=== PATIENT | male | born 1960 | race Hispanic/Latino ===

== ENCOUNTER → 2020-01-05 | Outpatient (CLI) | payer OTHER ==
[2020-01-05 10:23] LABS: BASOPHILS % (AUTO) 0.5 % (0.0-5.0); EOSINOPHILS % (AUTO) 2.9 % (0.0-8.0); HEMATOCRIT 36.9 % (42-54); LYMPHOCYTES % (AUTO) 12.1 % (21.0-51.0); MEAN CORPUSCULAR HGB CONC 34.4 g/dL (32.0-36.0); MEAN CORPUSCULAR VOLUME 98.9 fL (79-99); NEUTROPHILS % (AUTO) 76.3 % (40.0-77.0); PLATELET COUNT (AUTO) 75 K/uL (130-400); RED BLOOD CELL COUNT(AUTO) 3.73 MIL/uL (4.50-6.20); RED CELL DISTRIBUTION WIDTH 13.2 % (11.0-15.5); WHITE BLOOD COUNT (AUTO) 4.1 K/uL (4.8-10.8)
[2020-01-05 10:33] LABS: BILIRUBIN,TOTAL 1.9 mg/dL (0.2-1.0); INR 1.04 (0.85-1.15); PARTIAL THROMBOPLASTIN TIME 24.5 SEC (26.3-35.5); POTASSIUM 4.5 mmol/L (3.5-5.1); PROTHROMBIN TIME 11.2 SEC (9.6-11.6); TOTAL PROTEIN, SERUM 7.4 g/dL (6.0-8.3)
== END | disposition home or self-care (01) ==
LOC: RAH 08:57
PROVIDERS: ATTEND Internal Medicine Gastroenterology
DX: K80.20 Calculus of gallbladder without cholecystitis without obstruction (principal); K70.30 Alcoholic cirrhosis of liver without ascites
CPT/HCPCS: 36415; 76700; 80053; 85025; 85610; 85730; 93975

== ENCOUNTER 2021-05-28 10:22 | Inpatient (IN) | payer OTHER ==
[~2021-05-28] VITALS: Ht 154.9 cm; Wt 65.8 kg
[~2021-05-28 10:22] MED LIST: ALLO300T2 PO; FLUT1AER IH; LACT10SO76 PO; LISI40TA9 PO
[2021-05-28] MEDS ORDERED: 0.9%NACL 1000ML 1,000 ML IV SCH (11:00)
[2021-05-28] MEDS ORDERED: 0.9%NACL 1000ML 1,000 ML IV ONE (11:02)
[2021-05-28 11:06] LABS: HEMATOCRIT 34.7 % (42-54); MEAN CORPUSCULAR HEMOGLOBIN 35.8 pg (27.0-33.0); MEAN CORPUSCULAR HGB CONC 36.6 g/dL (32.0-36.0); MEAN CORPUSCULAR VOLUME 97.7 fL (79-99); PLATELET COUNT (AUTO) 104 K/uL (130-400); RED BLOOD CELL COUNT(AUTO) 3.55 MIL/uL (4.50-6.20); RED CELL DISTRIBUTION WIDTH 14.9 % (11.0-15.5); WHITE BLOOD COUNT (AUTO) 8.7 K/uL (4.8-10.8)
[2021-05-28 11:15] LABS: CREATININE 2.6 mg/dL (0.5-1.5); POTASSIUM 4.7 mmol/L (3.5-5.1)
[2021-05-28 11:20] LABS: INR 1.06 (0.85-1.15); PROTHROMBIN TIME 11.5 SEC (9.6-11.6)
[2021-05-28 11:21] LABS: PARTIAL THROMBOPLASTIN TIME 25.3 SEC (26.3-35.5)
[2021-05-28 11:26] LABS: ALBUMIN 2.3 g/dL (3.5-5.0); TOTAL PROTEIN, SERUM 6.6 g/dL (6.0-8.3)
[2021-05-28 12:04] LABS: EOSINOPHILS % (MANUAL) 1 % (1-6); LYMPHOCYTES % (MANUAL) 8 % (22-44); MAN.DIFF COMMENT-IMPRESSION MANUAL DIFFERENTIAL; MONOCYTES % (MANUAL) 6 % (2-9); PLATELET MORPHOLOGY COMMENT SLIGHTLY DECREASED; SEGMENTED NEUTROPHILS % 85 % (40-70)
[2021-05-28 12:23] LABS: APPEARANCE,URINE Clear (CLEAR); BILIRUBIN,URINE Negative (NEGATIVE); COLOR,URINE Yellow (YELLOW); GLUCOSE, URINE (UA) Negative (NEGATIVE); KETONES,URINE Negative (NEGATIVE); LEUKOCYTE ESTERASE ,URINE Negative (NEGATIVE); NITRATE,URINE Negative (NEGATIVE); OCCULT BLOOD,URINE Negative (NEGATIVE); PH,URINE 5.5 (5.0-8.0); PROTEIN,URINE Negative (NEGATIVE); UROBILINOGEN,URINE 0.2 mg/dL (0.2-1.0)
[2021-05-28] MEDS ORDERED: PANTOPRAZOLE 40 MG/VIAL IVP ONE (13:00)
[2021-05-28] MEDS ORDERED: 0.9%NACL 50ML 50 ML IV ONE (13:26)
[2021-05-28 13:28] LABS: AMPHET/METH SCREEN,URINE NEGATIVE (NEGATIVE); BARBITURATE SCREEN, URINE NEGATIVE (NEGATIVE); BENZODIAZEPINES SCREEN,URINE NEGATIVE (NEGATIVE); CANNABINOID SCREEN,URINE NEGATIVE (NEGATIVE); COCAINE SCREEN,URINE NEGATIVE (NEGATIVE); OPIATE SCREEN,URINE NEGATIVE (NEGATIVE); PHENCYCLIDINE SCREEN,URINE NEGATIVE (NEGATIVE)
[2021-05-28] MEDS: 0.9%NACL 1000ML 1,000 ML IV SCH (13:33)
[2021-05-28] MEDS: ZOSYN 3.375GM +NS 50ML IV SCH (13:33)
[2021-05-28 14:09] LABS: CREATININE,URINE RANDOM 74 mg/dL (30-135); SODIUM,URINE RANDOM 78 mmol/l (40-220)
[2021-05-28 14:10] LABS: MAGNESIUM 2.4 mg/dL (1.80-2.40); PHOSPHORUS 7.4 mg/dL (2.5-4.9)
[2021-05-28 14:14] LABS: HEMOGLOBIN A1C 8.5 % (4.0-6.0)
[2021-05-28 16:00] VITALS: BP 112/61
[2021-05-28 16:12] LABS: THYROID STIMULATING HORMONE 1.67 uIU/mL (0.36-3.74)
[2021-05-28] MEDS ORDERED: INSULIN GLARGINE 100 UNITS/ML 10 ML VIAL SQ ONE (16:30)
[2021-05-28] MEDS ORDERED: LACTULOSE 20 GM/30 ML UDCUP PO SCH (16:30)
[2021-05-28] MEDS: INSULIN HUMULIN R 100 UNIT/ML 3ML SQ SCH ×2 (16:59→20:40)
[2021-05-28 17:22] LABS: CREATININE 2.5 mg/dL (0.5-1.5); POTASSIUM 4.3 mmol/L (3.5-5.1)
[2021-05-28 19:34] VITALS: BP 105/43
[2021-05-28] MEDS: LACTULOSE 20 GM/30 ML UDCUP PO SCH (20:40)
[2021-05-28] MEDS: RIFAXIMIN 550 MG TABLET PO SCH (20:40)
[2021-05-28] MEDS ORDERED: LINAGLIPTIN 5 MG TABLET PO SCH (20:50)
[2021-05-28 23:54] VITALS: BP 107/60
[2021-05-29] MEDS: ZOSYN 3.375GM +NS 50ML IV SCH ×2 (01:03→12:18)
[2021-05-29] MEDS: 0.9%NACL 1000ML 1,000 ML IV SCH ×2 (01:50→17:27)
[2021-05-29 04:20] VITALS: BP 96/47
[2021-05-29] MEDS: INSULIN HUMULIN R 100 UNIT/ML 3ML SQ SCH ×4 (06:10→20:28)
[2021-05-29 08:00] VITALS: BP 102/56
[2021-05-29 08:01] LABS: BASOPHILS % (AUTO) 0.4 % (0.0-5.0); EOSINOPHILS % (AUTO) 3.2 % (0.0-8.0); HEMATOCRIT 30.4 % (42-54); LYMPHOCYTES % (AUTO) 12.1 % (21.0-51.0); MEAN CORPUSCULAR HEMOGLOBIN 34.6 pg (27.0-33.0); MEAN CORPUSCULAR HGB CONC 35.5 g/dL (32.0-36.0); MEAN CORPUSCULAR VOLUME 97.4 fL (79-99); MONOCYTES % (AUTO) 9.6 % (3.0-13.0); NEUTROPHILS % (AUTO) 73.2 % (40.0-77.0); PLATELET COUNT (AUTO) 68 K/uL (130-400); RED BLOOD CELL COUNT(AUTO) 3.12 MIL/uL (4.50-6.20); RED CELL DISTRIBUTION WIDTH 14.8 % (11.0-15.5); WHITE BLOOD COUNT (AUTO) 6.8 K/uL (4.8-10.8)
[2021-05-29] MEDS: RIFAXIMIN 550 MG TABLET PO SCH ×2 (08:28→20:28)
[2021-05-29] MEDS: LACTULOSE 20 GM/30 ML UDCUP PO SCH ×2 (08:28→20:28)
[2021-05-29] MEDS: PANTOPRAZOLE 40 MG/VIAL IVP SCH (08:28)
[2021-05-29 08:36] LABS: BILIRUBIN,TOTAL 1.8 mg/dL (0.2-1.0); CREATININE 1.6 mg/dL (0.5-1.5); MAGNESIUM 2.1 mg/dL (1.80-2.40); POTASSIUM 3.9 mmol/L (3.5-5.1); TOTAL PROTEIN, SERUM 5.6 g/dL (6.0-8.3)
[2021-05-29 11:36] VITALS: BP 103/60
[2021-05-29] MEDS ORDERED: SPIR25TA6 PO ×2 (12:15)
[2021-05-29] MEDS ORDERED: FURO40TA5 PO ×2 (12:15)
[2021-05-29] MEDS ORDERED: PRED10TA3 PO (12:15)
[2021-05-29] MEDS ORDERED: GLIP1TAB4 PO (12:15)
[2021-05-29] MEDS ORDERED: TAMSULOSIN HCL 0.4 MG CAP.ER.24H PO SCH (13:50)
[2021-05-29 16:00] VITALS: BP 92/54
[2021-05-29 19:38] VITALS: BP 95/53
[2021-05-30] VITALS (7 sets, daily range): BP systolic 87–114; BP diastolic 40–64
[2021-05-30] MEDS: ZOSYN 3.375GM +NS 50ML IV SCH ×2 (01:06→13:12)
[2021-05-30 04:28] LABS: CREATININE 1.5 mg/dL (0.5-1.5); PHOSPHORUS 2.8 mg/dL (2.5-4.9); POTASSIUM 4.2 mmol/L (3.5-5.1)
[2021-05-30 04:45] LABS: BASOPHILS % (AUTO) 0.6 % (0.0-5.0); EOSINOPHILS % (AUTO) 3.7 % (0.0-8.0); LYMPHOCYTES % (AUTO) 21.6 % (21.0-51.0); MEAN CORPUSCULAR HEMOGLOBIN 35.7 pg (27.0-33.0); MEAN CORPUSCULAR HGB CONC 35.6 g/dL (32.0-36.0); MEAN CORPUSCULAR VOLUME 100.4 fL (79-99); MONOCYTES % (AUTO) 10.3 % (3.0-13.0); NEUTROPHILS % (AUTO) 62.9 % (40.0-77.0); PLATELET COUNT (AUTO) 47 K/uL (130-400); RED BLOOD CELL COUNT(AUTO) 2.69 MIL/uL (4.50-6.20); RED CELL DISTRIBUTION WIDTH 15.2 % (11.0-15.5); WHITE BLOOD COUNT (AUTO) 3.5 K/uL (4.8-10.8)
[2021-05-30] MEDS: 0.9%NACL 1000ML 1,000 ML IV SCH ×3 (05:08→19:53)
[2021-05-30] MEDS: INSULIN HUMULIN R 100 UNIT/ML 3ML SQ SCH ×4 (06:22→19:55)
[2021-05-30] MEDS: PANTOPRAZOLE 40 MG/VIAL IVP SCH (08:43)
[2021-05-30] MEDS: LACTULOSE 20 GM/30 ML UDCUP PO SCH ×2 (08:43→19:53)
[2021-05-30] MEDS: TAMSULOSIN HCL 0.4 MG CAP.ER.24H PO SCH (08:43)
[2021-05-30] MEDS: RIFAXIMIN 550 MG TABLET PO SCH ×2 (08:43→19:54)
[2021-05-30] MEDS: PREDNISONE 10 MG TABLET PO SCH (08:49)
[2021-05-30] MEDS: MIDODRINE HCL 5 MG TABLET PO SCH ×2 (13:12→19:53)
[2021-05-30] MEDS ORDERED: INSULIN GLARGINE 100 UNITS/ML 10 ML VIAL SQ SCH (21:00)
[2021-05-31] MEDS ORDERED: 0.9%NACL 50ML 50 ML IV ONE (02:03)
[2021-05-31] MEDS: ZOSYN 3.375GM +NS 50ML IV SCH (02:04)
[2021-05-31 03:30] VITALS: BP 111/69
[2021-05-31 04:27] LABS: HEMATOCRIT 27.1 % (42-54); MEAN CORPUSCULAR HEMOGLOBIN 34.6 pg (27.0-33.0); MEAN CORPUSCULAR HGB CONC 34.3 g/dL (32.0-36.0); MEAN CORPUSCULAR VOLUME 100.7 fL (79-99); PLATELET COUNT (AUTO) 32 K/uL (130-400); RED BLOOD CELL COUNT(AUTO) 2.69 MIL/uL (4.50-6.20); RED CELL DISTRIBUTION WIDTH 14.6 % (11.0-15.5); WHITE BLOOD COUNT (AUTO) 3.7 K/uL (4.8-10.8)
[2021-05-31 04:45] LABS: CREATININE 1.5 mg/dL (0.5-1.5); POTASSIUM 4.4 mmol/L (3.5-5.1)
[2021-05-31] MEDS: INSULIN HUMULIN R 100 UNIT/ML 3ML SQ SCH (05:18)
[2021-05-31] MEDS ORDERED: INSULIN HUMULIN R 100 UNIT/ML 3ML SQ SCH ×2 (07:30→11:30)
[2021-05-31] MEDS: LACTULOSE 20 GM/30 ML UDCUP PO SCH (08:07)
[2021-05-31] MEDS: TAMSULOSIN HCL 0.4 MG CAP.ER.24H PO SCH (08:07)
[2021-05-31] MEDS: RIFAXIMIN 550 MG TABLET PO SCH (08:07)
[2021-05-31] MEDS: MIDODRINE HCL 5 MG TABLET PO SCH (08:07)
[2021-05-31] MEDS: PANTOPRAZOLE 40 MG/VIAL IVP SCH (08:07)
[2021-05-31] MEDS: PREDNISONE 10 MG TABLET PO SCH (08:07)
[2021-05-31 08:15] VITALS: BP 112/69
[2021-05-31] MEDS ORDERED: PANT40TA54 PO ×2 (10:58)
[2021-05-31] MEDS ORDERED: MIDO5TAB4 PO ×2 (10:58)
[2021-05-31] MEDS ORDERED: GLIP1TAB6 PO ×2 (10:58)
[2021-05-31] MEDS ORDERED: AMOX-426 PO ×2 (10:58)
== END 2021-05-31 11:58 | disposition home or self-care (01) | DRG 871 ==
LOC: EDH 10:22 → EDHIP 12:42 → 2AH 14:23
PROVIDERS: ADMIT Internal Medicine; ATTEND Internal Medicine
DX: A41.9 Sepsis, unspecified organism (principal); J18.9 Pneumonia, unspecified organism; N17.9 Acute kidney failure, unspecified; N13.8 Other obstructive and reflux uropathy; E87.1 Hypo-osmolality and hyponatremia; K72.90 Hepatic failure, unspecified without coma; K70.30 Alcoholic cirrhosis of liver without ascites; N40.1 Benign prostatic hyperplasia with lower urinary tract symptoms; R65.20 Severe sepsis without septic shock; E11.65 Type 2 diabetes mellitus with hyperglycemia; Z20.822 Contact with and (suspected) exposure to COVID-19; E86.0 Dehydration; I95.9 Hypotension, unspecified; E86.1 Hypovolemia; G31.2 Degeneration of nervous system due to alcohol; I10 Essential (primary) hypertension; I25.10 Atherosclerotic heart disease of native coronary artery without angina pectoris; R62.7 Adult failure to thrive; T38.0X5A Adverse effect of glucocorticoids and synthetic analogues, initial encounter; Z76.82 Awaiting organ transplant status; Z79.52 Long term (current) use of systemic steroids; Z85.05 Personal history of malignant neoplasm of liver; Z87.01 Personal history of pneumonia (recurrent); U09.9 Post COVID-19 condition, unspecified
CPT/HCPCS: 36415; 70450; 71045; 74176; 76705; 80048; 80053; 80305; 81003; 82010; 82140; 82550; 82570; 82947; 82948; 82977; 83036; 83605; 83735; 84100; 84145; 84300; 84443; 84484; 84540; 85025; 85027; 85610; 85651; 85730; 87040; 87635; 87804; 93005; C9113; G0378; J1815; J2543; J7030; J7512

== ENCOUNTER 2021-06-13 12:35 | Emergency (ER) | payer OTHER ==
[~2021-06-13] VITALS: Ht 154.9 cm; Wt 66.2 kg
[~2021-06-13 12:35] MED LIST changes: +AMOX-426 PO; +FURO40TA5 PO; +GLIP1TAB4 PO; +GLIP1TAB6 PO; +MIDO5TAB4 PO; +PANT40TA54 PO; +PRED10TA3 PO; +SPIR25TA6 PO
[2021-06-13 13:22] LABS: BASOPHILS % (AUTO) 0.2 % (0.0-5.0); EOSINOPHILS % (AUTO) 0.8 % (0.0-8.0); HEMATOCRIT 32.7 % (42-54); LYMPHOCYTES % (AUTO) 15.2 % (21.0-51.0); MEAN CORPUSCULAR HEMOGLOBIN 35.8 pg (27.0-33.0); MEAN CORPUSCULAR HGB CONC 36.4 g/dL (32.0-36.0); MEAN CORPUSCULAR VOLUME 98.5 fL (79-99); MONOCYTES % (AUTO) 7.8 % (3.0-13.0); NEUTROPHILS % (AUTO) 75.2 % (40.0-77.0); PLATELET COUNT (AUTO) 95 K/uL (130-400); RED BLOOD CELL COUNT(AUTO) 3.32 MIL/uL (4.50-6.20); RED CELL DISTRIBUTION WIDTH 14.8 % (11.0-15.5); WHITE BLOOD COUNT (AUTO) 4.9 K/uL (4.8-10.8)
[2021-06-13 13:31] LABS: POTASSIUM 3.4 mmol/L (3.5-5.1)
[2021-06-13 13:35] LABS: ALBUMIN 2.7 g/dL (3.5-5.0); BILIRUBIN,TOTAL 2.5 mg/dL (0.2-1.0)
[2021-06-13 13:50] LABS: APPEARANCE,URINE CLEAR (CLEAR); BILIRUBIN,URINE NEGATIVE (NEGATIVE); COLOR,URINE YELLOW (YELLOW); GLUCOSE, URINE (UA) NEGATIVE (NEGATIVE); KETONES,URINE NEGATIVE (NEGATIVE); LEUKOCYTE ESTERASE ,URINE NEGATIVE (NEGATIVE); NITRATE,URINE NEGATIVE (NEGATIVE); OCCULT BLOOD,URINE NEGATIVE (NEGATIVE); PH,URINE 5.5 (5.0-8.0); PROTEIN,URINE NEGATIVE (NEGATIVE); UROBILINOGEN,URINE 0.2 mg/dL (0.2-1.0)
[2021-06-13] MEDS ORDERED: POTASSIUM BICARB/CIT AC 25 MEQ TABLET.EFF PO ONE (15:30)
[2021-06-13] MEDS ORDERED: LACTULOSE 20 GM/30 ML UDCUP PO ONE (17:00)
[2021-06-13 17:09] VITALS: BP 122/90
== END 2021-06-13 17:11 | disposition home or self-care (01) ==
LOC: EDH 12:35
DX: E72.20 Disorder of urea cycle metabolism, unspecified (principal); K76.7 Hepatorenal syndrome; I10 Essential (primary) hypertension; Z79.899 Other long term (current) drug therapy
CPT/HCPCS: 36415; 80053; 81003; 82140; 82550; 85025

== ENCOUNTER 2022-03-20 10:17 | Emergency (ER) | payer OTHER ==
[~2022-03-20] VITALS: Ht 152.4 cm; Wt 69.9 kg
[~2022-03-20 10:17] MED LIST changes: -GLIP1TAB4 PO; -LISI40TA9 PO; -MIDO5TAB4 PO; -PRED10TA3 PO
[2022-03-20 10:30] VITALS: BP 164/96
[2022-03-20 11:02] LABS: HEMATOCRIT 44.1 % (42-54); MEAN CORPUSCULAR HEMOGLOBIN 36.9 pg (27.0-33.0); MEAN CORPUSCULAR HGB CONC 35.6 g/dL (32.0-36.0); MEAN CORPUSCULAR VOLUME 103.5 fL (79-99); PLATELET COUNT (AUTO) 66 K/uL (130-400); RED BLOOD CELL COUNT(AUTO) 4.26 MIL/uL (4.50-6.20); RED CELL DISTRIBUTION WIDTH 15.1 % (11.0-15.5); WHITE BLOOD COUNT (AUTO) 10.3 K/uL (4.8-10.8)
[2022-03-20 11:12] LABS: CREATININE 1.6 mg/dL (0.5-1.5); POTASSIUM 4.7 mmol/L (3.5-5.1)
[2022-03-20 11:17] LABS: ALBUMIN 1.8 g/dL (3.5-5.0); TOTAL PROTEIN, SERUM 6.2 g/dL (6.0-8.3)
[2022-03-20] MEDS ORDERED: 0.9%NACL 1000ML 1,000 ML IV ONE (12:30)
[2022-03-20] MEDS ORDERED: FAMOTIDINE 20MG VIAL IV ONE (12:30)
[2022-03-20] MEDS ORDERED: ONDANSETRON 4MG INJ IVP ONE (12:30)
[2022-03-20] MEDS ORDERED: MECLIZINE HCL 25 MG TABLET PO ONE (12:30)
[2022-03-20] MEDS ORDERED: MECL-226 PO (14:37)
[2022-03-20] MEDS ORDERED: ONDA4TAB10 PO (14:37)
== END 2022-03-20 15:35 | disposition home or self-care (01) ==
LOC: EDH 10:17
DX: K59.00 Constipation, unspecified (principal); E86.0 Dehydration; R42 Dizziness and giddiness; I10 Essential (primary) hypertension; Z20.822 Contact with and (suspected) exposure to COVID-19; Z98.890 Other specified postprocedural states; Z79.899 Other long term (current) drug therapy
CPT/HCPCS: 99285; 96374; 70450; 87635; 96361; 96375; 84484; 80053; 82140; 85027; 36415; 74018; 93005; C9803; J3490; J7030; J2405